=== PATIENT | male | born 1955 | race African-American/Black ===

== ENCOUNTER 2022-11-15 21:35 | Emergency (ER) | payer BC ==
[2022-11-15] MEDS ORDERED: Metoclopramide HCl 10 MG TAB ONE (22:29)
== END 2022-11-15 23:53 | disposition home or self-care (01) ==
LOC: CSHERS 21:35
DX: R11.2 Nausea with vomiting, unspecified (principal); I10 Essential (primary) hypertension
CPT/HCPCS: 99283